=== PATIENT | female | born 1955 | race Caucasian/White ===

== ENCOUNTER 2016-08-16 09:52 | Outpatient (CLI) | payer OTHER ==
[2016-08-16 11:19] LABS: Anion Gap 12 mmol/L (10-20); Glucose 93 mg/dL (80-115)
[2016-08-16 11:40] LABS: BUN (Urea Nitrogen) 9 mg/dL (9.8-20.1); Calc. Creatinine Clearance 0 mL/min (70-130); Calcium 8.7 mg/dL (7.8-10.44); Carbon Dioxide 24 mmol/L (23-31); Chloride 111 mmol/L (98-107); Estimated GFR-MDRD 85; Potassium 2.5 mmol/L (3.5-5.1); Sodium 144 mmol/L (136-145)
== END 2016-08-16 09:53 | disposition home or self-care (01) ==
LOC: MADLAB 09:52
PROVIDERS: ATTEND Family Medicine
DX: R19.7 Diarrhea, unspecified (principal)
CPT/HCPCS: 36415; 80048

== ENCOUNTER 2016-08-19 11:31 | Outpatient (CLI) | payer OTHER ==
[2016-08-19 13:02] LABS: Potassium 2.7 mmol/L (3.5-5.1)
== END 2016-08-19 11:32 | disposition home or self-care (01) ==
LOC: MADLAB 11:31
PROVIDERS: ATTEND Family Medicine
DX: E87.6 Hypokalemia (principal)
CPT/HCPCS: 36415; 84132

== ENCOUNTER 2016-08-30 10:30 | Outpatient (CLI) | payer OTHER ==
[2016-09-06 18:20] LABS: Potassium 6.5 mmol/L (3.5-5.1)
== END 2016-08-30 10:31 | disposition home or self-care (01) ==
LOC: MADLAB 10:30
PROVIDERS: ATTEND Family Medicine
DX: E87.6 Hypokalemia (principal)
CPT/HCPCS: 36415; 84132

== ENCOUNTER 2016-09-01 10:34 | Outpatient (CLI) | payer OTHER ==
[2016-09-01 11:19] LABS: Potassium 6.3 mmol/L (3.5-5.1)
== END 2016-09-01 10:35 | disposition home or self-care (01) ==
LOC: MADLABBHPM 10:34
PROVIDERS: ATTEND Family Medicine
DX: E87.6 Hypokalemia (principal)
CPT/HCPCS: 36415; 84132

== ENCOUNTER 2016-09-06 09:43 | Outpatient (CLI) | payer OTHER ==
[2016-09-06 10:04] LABS: Potassium 4.6 mmol/L (3.5-5.1)
== END 2016-09-06 09:44 | disposition home or self-care (01) ==
LOC: MADLAB 09:43
PROVIDERS: ATTEND Family Medicine
DX: E87.6 Hypokalemia (principal)
CPT/HCPCS: 36415; 84132

== ENCOUNTER 2016-09-13 09:56 | Outpatient (CLI) | payer OTHER ==
[2016-09-13 11:06] LABS: Anion Gap 17 mmol/L (10-20); BUN (Urea Nitrogen) 7 mg/dL (9.8-20.1); Calc. Creatinine Clearance 0 mL/min (70-130); Carbon Dioxide 26 mmol/L (23-31); Chloride 103 mmol/L (98-107); Estimated GFR-MDRD 85; Glucose 94 mg/dL (80-115); Potassium 3.5 mmol/L (3.5-5.1); Sodium 142 mmol/L (136-145)
[2016-09-13 18:37] LABS: Creatinine, Urine 67.91 mg/dL (47-110); Potassium, Urine 15.9 mmol/L
[2016-09-16 14:25] LABS: Aldolase 3.7 U/L (3.3-10.3)
[2016-09-27 13:12] LABS: Renin Activity 0.212 ng/mL/hr (0.167-5.380)
== END 2016-09-13 09:57 | disposition home or self-care (01) ==
LOC: MADLAB 09:56
PROVIDERS: ATTEND Internal Medicine
DX: E87.6 Hypokalemia (principal)
CPT/HCPCS: 36415; 80048; 82085; 82570; 84133; 84244

== ENCOUNTER 2016-09-23 15:14 | Outpatient (CLI) | payer OTHER ==
[2016-09-23 15:33] LABS: Magnesium 1.8 mg/dL (1.6-2.6); Potassium 3.7 mmol/L (3.5-5.1)
== END 2016-09-23 15:15 | disposition home or self-care (01) ==
LOC: MADLAB 15:14
PROVIDERS: ATTEND Internal Medicine
DX: E87.6 Hypokalemia (principal)
CPT/HCPCS: 36415; 83735; 84132

== ENCOUNTER 2016-10-19 10:45 | Outpatient (CLI) | payer OTHER | END 2016-10-19 10:46 | disposition home or self-care (01) | LOC: MADLABBHPM 10:45 | PROVIDERS: ATTEND Internal Medicine | DX: E87.6 Hypokalemia (principal) | CPT/HCPCS: 36415; 84132 ==

== ENCOUNTER 2016-11-08 15:47 | Outpatient (CLI) | payer OTHER ==
[2016-11-08 16:24] LABS: Potassium 3.9 mmol/L (3.5-5.1)
== END 2016-11-08 15:48 | disposition home or self-care (01) ==
LOC: MADLAB 15:47
PROVIDERS: ATTEND Family Medicine
DX: E87.6 Hypokalemia (principal)
CPT/HCPCS: 36415; 84132

== ENCOUNTER 2016-11-09 11:39 | Outpatient (CLI) | payer OTHER ==
--- NOTE | 2016-11-10 09:00 | RAD ---
LEFT FOOT THREE VIEWS: Date: 11-09-16 Comparison: None History: Left foot pain for one month, no history of trauma. FINDINGS: The bones are demineralized. There is an old fracture involving the third metatarsal shaft. There is post-operative hardware associated with the distal tibia, not well characterized on this exam. No a cute displaced fracture or dislocation. IMPRESSION: Chronic changes as above. No displaced fracture or dislocation seen. POS: [facility]
== END 2016-11-09 11:40 | disposition home or self-care (01) ==
LOC: MADRAD 11:39
PROVIDERS: ATTEND Family Medicine
DX: M79.672 Pain in left foot (principal); E87.6 Hypokalemia

== ENCOUNTER 2016-11-26 11:31 | Outpatient (CLI) | payer OTHER ==
[2016-11-26 12:38] LABS: Potassium 4.1 mmol/L (3.5-5.1)
== END 2016-11-26 11:32 | disposition home or self-care (01) ==
LOC: MADLAB 11:31
PROVIDERS: ATTEND Family Medicine
DX: E87.6 Hypokalemia (principal)
CPT/HCPCS: 36415; 84132

== ENCOUNTER 2016-12-09 11:39 | Outpatient (CLI) | payer OTHER ==
[2016-12-09 12:08] LABS: Potassium 4.9 mmol/L (3.5-5.1)
== END 2016-12-09 11:40 | disposition home or self-care (01) ==
LOC: MADLABBHPM 11:39
PROVIDERS: ATTEND Family Medicine
DX: E87.6 Hypokalemia (principal)
CPT/HCPCS: 36415; 84132

== ENCOUNTER 2016-12-16 11:16 | Outpatient (CLI) | payer OTHER ==
[2016-12-16 11:59] LABS: Potassium 4.8 mmol/L (3.5-5.1)
== END 2016-12-16 11:17 | disposition home or self-care (01) ==
LOC: MADLABBHPM 11:16
PROVIDERS: ATTEND Family Medicine
DX: E87.6 Hypokalemia (principal)
CPT/HCPCS: 36415; 84132

== ENCOUNTER 2016-12-27 14:21 | Outpatient (CLI) | payer OTHER ==
[2016-12-27 15:02] LABS: Potassium 4.8 mmol/L (3.5-5.1)
== END 2016-12-27 14:22 | disposition home or self-care (01) ==
LOC: MADLABBHPM 14:21
PROVIDERS: ATTEND Family Medicine
DX: E87.6 Hypokalemia (principal)
CPT/HCPCS: 36415; 84132

== ENCOUNTER 2017-01-11 14:09 | Outpatient (CLI) | payer OTHER ==
[2017-01-11 14:33] LABS: Potassium 4.2 mmol/L (3.5-5.1)
== END 2017-01-11 14:10 | disposition home or self-care (01) ==
LOC: MADLABBHPM 14:09
PROVIDERS: ATTEND Family Medicine
DX: E87.6 Hypokalemia (principal)
CPT/HCPCS: 36415; 84132

== ENCOUNTER 2017-02-16 11:46 | Outpatient (CLI) | payer OTHER ==
[2017-02-16 12:57] LABS: Potassium 4.5 mmol/L (3.5-5.1)
== END 2017-02-16 11:47 | disposition home or self-care (01) ==
LOC: MADLABBHPM 11:46
PROVIDERS: ATTEND Family Medicine
DX: E87.6 Hypokalemia (principal)
CPT/HCPCS: 36415; 84132

== ENCOUNTER 2017-03-07 13:46 | Outpatient (CLI) | payer OTHER ==
[2017-03-07 14:21] LABS: Potassium 3.5 mmol/L (3.5-5.1)
== END 2017-03-07 13:47 | disposition home or self-care (01) ==
LOC: MADLABBHPM 13:46
PROVIDERS: ATTEND Family Medicine
DX: E87.6 Hypokalemia (principal)
CPT/HCPCS: 36415; 84132

== ENCOUNTER 2017-03-28 12:39 | Outpatient (CLI) | payer OTHER ==
[2017-03-28 12:59] LABS: Potassium 3.2 mmol/L (3.5-5.1)
== END 2017-03-28 12:40 | disposition home or self-care (01) ==
LOC: MADLABBHPM 12:39
PROVIDERS: ATTEND Family Medicine
DX: E87.6 Hypokalemia (principal)
CPT/HCPCS: 36415; 84132

== ENCOUNTER 2017-04-11 12:16 | Outpatient (CLI) | payer OTHER ==
[2017-04-11 13:12] LABS: Potassium 4.8 mmol/L (3.5-5.1)
== END 2017-04-11 12:17 | disposition home or self-care (01) ==
LOC: MADLABBHPM 12:16
PROVIDERS: ATTEND Family Medicine
DX: E87.6 Hypokalemia (principal)
CPT/HCPCS: 84132

== ENCOUNTER 2017-04-26 15:08 | Outpatient (CLI) | payer BC, OTHER ==
[2017-04-26 16:05] LABS: Potassium 4.7 mmol/L (3.5-5.1)
== END 2017-04-26 15:09 | disposition home or self-care (01) ==
LOC: MADLABBHPM 15:08
PROVIDERS: ATTEND Family Medicine
DX: E87.6 Hypokalemia (principal)
CPT/HCPCS: 36415; 84132

== ENCOUNTER 2017-07-11 09:10 | Outpatient (CLI) | payer BC | END 2017-07-11 09:11 | disposition home or self-care (01) | LOC: MADLABBHPM 09:10 | PROVIDERS: ATTEND Family Medicine | DX: E87.6 Hypokalemia (principal) | CPT/HCPCS: 36415; 84132 ==

== ENCOUNTER 2017-07-11 12:07 | Emergency (ER) | payer BC ==
[2017-07-11] MEDS ORDERED: Potassium Chloride 20 MEQ TAB ONE (12:45)
[2017-07-11] MEDS ORDERED: Magnesium Sulfate 2 GM/NS 0.9% 50 ML BAG ONE (12:46)
[2017-07-11] MEDS ORDERED: Potassium Chloride 20 MEQ/100 ML PREMIX BAG ONE (12:46)
[2017-07-11 12:59] LABS: #Basophils 0.1 thou/uL (0.0-0.2); #Eosinphils 0.1 thou/uL (0.0-0.7); #Monocytes 0.9 thou/uL (0.11-0.59); #Neutrophils 6.8 thou/uL (1.40-6.50); %Basophils 0.9 % (0.0-1.0); %Eosinophils 0.6 % (0.0-10.0); %Lymphocytes 33.5 % (21.0-51.0); %Monocytes 7.9 % (0.0-10.0); %Neutrophils 57.1 % (42.0-75.0); Hemoglobin 12.9 g/dL (12.0-16.0); Mean Corpuscular HGB CONC 32.3 g/dL (32.0-36.0); Mean Corpuscular Hemoglobin 30.5 pg (27.0-31.0); Mean Corpuscular Volume 94.2 fl (81.0-99.0); Mean Platelet Volume 6.4 fL (7.4-10.4); Platelet Count 544 thou/uL (130-400); RBC Distribution Width 17.1 % (11.5-14.5); Red Blood Cell (RBC) Count 4.24 mill/uL (4.20-5.40); White Blood Cell (WBC) Count 11.9 thou/uL (4.8-10.8)
[2017-07-11 13:12] LABS: ALT (SGPT) Less than 6 U/L (8-55); AST (SGOT) 12 U/L (5-34); Albumin 3.6 g/dL (3.4-4.8); Alkaline Phosphatase 64 U/L (40-150); Anion Gap 17 mmol/L (10-20); BUN (Urea Nitrogen) 24 mg/dL (9.8-20.1); Bilirubin, Total Less than 0.3 mg/dL (0.2-1.2); Calc. Creatinine Clearance 0 mL/min (70-130); Calcium 8.8 mg/dL (7.8-10.44); Carbon Dioxide 22 mmol/L (23-31); Chloride 105 mmol/L (98-107); Estimated GFR-MDRD 41; Globulin 3.2 g/dL (2.4-3.5); Glucose 103 mg/dL (80-115); Protein, Total 6.8 g/dL (6.0-8.3); Sodium 142 mmol/L (136-145)
[2017-07-11 13:14] LABS: CKMB 3.8 ng/mL (0-6.6); Troponin I 0.013 ng/mL (< 0.028)
[2017-07-11 13:18] LABS: Potassium 2.1 mmol/L (3.5-5.1)
== END 2017-07-11 15:35 | disposition short-term general hospital (02) ==
LOC: MADERS 12:07
DX: E87.6 Hypokalemia (principal); E78.5 Hyperlipidemia, unspecified; G40.909 Epilepsy, unspecified, not intractable, without status epilepticus; I10 Essential (primary) hypertension; D64.9 Anemia, unspecified; F32.9 Major depressive disorder, single episode, unspecified; K21.9 Gastro-esophageal reflux disease without esophagitis; J44.9 Chronic obstructive pulmonary disease, unspecified; F17.210 Nicotine dependence, cigarettes, uncomplicated; Z79.899 Other long term (current) drug therapy
CPT/HCPCS: 36415; 82553; 83735; 84132; 84484; 85025; 93005; 96365; 96366; 96367; J3475; J3480

== ENCOUNTER 2017-07-20 09:12 | Outpatient (CLI) | payer BC ==
[2017-07-20 10:55] LABS: ALT (SGPT) Less than 6 U/L (8-55); AST (SGOT) 10 U/L (5-34); Albumin 3.6 g/dL (3.4-4.8); Alkaline Phosphatase 53 U/L (40-150); Anion Gap 17 mmol/L (10-20); BUN (Urea Nitrogen) 6 mg/dL (9.8-20.1); Bilirubin, Total Less than 0.3 mg/dL (0.2-1.2); Calc. Creatinine Clearance 0 mL/min (70-130); Calcium 8.7 mg/dL (7.8-10.44); Carbon Dioxide 17 mmol/L (23-31); Chloride 112 mmol/L (98-107); Estimated GFR-MDRD Greater than 90; Globulin 2.9 g/dL (2.4-3.5); Glucose 116 mg/dL (80-115); Magnesium 1.5 mg/dL (1.6-2.6); Potassium 4.6 mmol/L (3.5-5.1); Protein, Total 6.5 g/dL (6.0-8.3); Sodium 141 mmol/L (136-145)
[2017-07-20 11:04] LABS: #Basophils 0.1 thou/uL (0.0-0.2); #Lymphocytes 1.3 thou/uL (1.20-3.40); #Monocytes 0.2 thou/uL (0.11-0.59); %Basophils 0.8 % (0.0-1.0); %Eosinophils 0.3 % (0.0-10.0); %Lymphocytes 13.8 % (21.0-51.0); %Monocytes 1.7 % (0.0-10.0); %Neutrophils 83.4 % (42.0-75.0); Hemoglobin 10.7 g/dL (12.0-16.0); Mean Corpuscular HGB CONC 31.8 g/dL (32.0-36.0); Mean Corpuscular Hemoglobin 30.9 pg (27.0-31.0); Mean Corpuscular Volume 97.1 fl (81.0-99.0); Mean Platelet Volume 5.4 fL (7.4-10.4); Platelet Count 567 thou/uL (130-400); RBC Distribution Width 17.5 % (11.5-14.5); Red Blood Cell (RBC) Count 3.46 mill/uL (4.20-5.40); White Blood Cell (WBC) Count 9.6 thou/uL (4.8-10.8)
[2017-07-20 17:16] LABS: Valproic Acid (Depakene) 43.6 ug/mL (50.0-100.0)
== END 2017-07-20 09:13 | disposition home or self-care (01) ==
LOC: MADLABBHPM 09:12
PROVIDERS: ATTEND Family Medicine
DX: E83.40 Disorders of magnesium metabolism, unspecified (principal); E87.6 Hypokalemia; I10 Essential (primary) hypertension; R19.7 Diarrhea, unspecified
CPT/HCPCS: 36415; 80053; 80164; 83735; 84443; 85025

== ENCOUNTER 2017-07-28 13:56 | Outpatient (CLI) | payer BC ==
[2017-07-28 14:58] LABS: Potassium 4.8 mmol/L (3.5-5.1)
== END 2017-07-28 13:57 | disposition home or self-care (01) ==
LOC: MADLABBHPM 13:56
PROVIDERS: ATTEND Family Medicine
DX: E87.6 Hypokalemia (principal); I10 Essential (primary) hypertension
CPT/HCPCS: 36415

== ENCOUNTER 2017-08-04 09:20 | Outpatient (CLI) | payer BC ==
[2017-08-04 09:49] LABS: #Basophils 0.1 thou/uL (0.0-0.2); #Monocytes 0.3 thou/uL (0.11-0.59); #Neutrophils 7.8 thou/uL (1.40-6.50); %Basophils 0.8 % (0.0-1.0); %Eosinophils 0.2 % (0.0-10.0); %Lymphocytes 19.5 % (21.0-51.0); %Neutrophils 76.6 % (42.0-75.0); Hemoglobin 11.4 g/dL (12.0-16.0); Mean Corpuscular HGB CONC 31.2 g/dL (32.0-36.0); Mean Corpuscular Hemoglobin 30.7 pg (27.0-31.0); Mean Corpuscular Volume 98.3 fl (81.0-99.0); Mean Platelet Volume 5.5 fL (7.4-10.4); Platelet Count 472 thou/uL (130-400); RBC Distribution Width 16.4 % (11.5-14.5); Red Blood Cell (RBC) Count 3.72 mill/uL (4.20-5.40); White Blood Cell (WBC) Count 10.2 thou/uL (4.8-10.8)
[2017-08-04 10:01] LABS: Anion Gap 18 mmol/L (10-20); BUN (Urea Nitrogen) 15 mg/dL (9.8-20.1); Calc. Creatinine Clearance 0 mL/min (70-130); Calcium 9.4 mg/dL (7.8-10.44); Carbon Dioxide 19 mmol/L (23-31); Chloride 111 mmol/L (98-107); Estimated GFR-MDRD 75; Glucose 133 mg/dL (80-115); Potassium 5.7 mmol/L (3.5-5.1); Sodium 142 mmol/L (136-145)
== END 2017-08-04 09:21 | disposition home or self-care (01) ==
LOC: MADLABBHPM 09:20
PROVIDERS: ATTEND Family Medicine
DX: E87.6 Hypokalemia (principal); I10 Essential (primary) hypertension
CPT/HCPCS: 36415; 80048; 85025

== ENCOUNTER 2017-08-08 13:16 | Outpatient (CLI) | payer BC ==
[2017-08-08 14:04] LABS: Potassium 3.4 mmol/L (3.5-5.1)
== END 2017-08-08 13:17 | disposition home or self-care (01) ==
LOC: MADLABBHPM 13:16
PROVIDERS: ATTEND Family Medicine
DX: E87.6 Hypokalemia (principal); I10 Essential (primary) hypertension
CPT/HCPCS: 36415; 84132

== ENCOUNTER 2017-08-12 16:16 | Outpatient (CLI) | payer BC ==
[2017-08-12 16:46] LABS: Potassium 2.6 mmol/L (3.5-5.1)
== END 2017-08-12 16:17 | disposition home or self-care (01) ==
LOC: MADLABBHPM 16:16
PROVIDERS: ATTEND Family Medicine
DX: E87.6 Hypokalemia (principal)
CPT/HCPCS: 36415; 84132

== ENCOUNTER 2017-08-12 17:07 | Emergency (ER) | payer BC ==
[~2017-08-12 17:07] MED LIST: Sodium Chloride 0.9% 1,000 ML BAG ONE
[2017-08-12 18:15] LABS: #Basophils 0.1 thou/uL (0.0-0.2); #Eosinphils 0.1 thou/uL (0.0-0.7); #Lymphocytes 2.6 thou/uL (1.20-3.40); #Monocytes 0.6 thou/uL (0.11-0.59); %Basophils 0.9 % (0.0-1.0); %Eosinophils 1.6 % (0.0-10.0); %Lymphocytes 30.7 % (21.0-51.0); %Neutrophils 59.8 % (42.0-75.0); Hemoglobin 10.2 g/dL (12.0-16.0); Mean Corpuscular HGB CONC 31.2 g/dL (32.0-36.0); Mean Corpuscular Hemoglobin 30.6 pg (27.0-31.0); Mean Corpuscular Volume 98.1 fl (81.0-99.0); Mean Platelet Volume 5.6 fL (7.4-10.4); Platelet Count 349 thou/uL (130-400); RBC Distribution Width 16.3 % (11.5-14.5); Red Blood Cell (RBC) Count 3.33 mill/uL (4.20-5.40); White Blood Cell (WBC) Count 8.3 thou/uL (4.8-10.8)
[2017-08-12] MEDS ORDERED: Furosemide 40 MG/4 ML VIAL ONE (18:21)
[2017-08-12] MEDS ORDERED: Potassium Chloride 20 MEQ/100 ML PREMIX BAG ONE (18:21)
[2017-08-12] MEDS ORDERED: Levofloxacin 500 mg/D5W 100 ml Premix Bag ONE (18:21)
[2017-08-12 18:30] LABS: ALT (SGPT) Less than 7 U/L (8-55); AST (SGOT) 5 U/L (5-34); Albumin 3.4 g/dL (3.4-4.8); Alkaline Phosphatase 36 U/L (40-150); Anion Gap 13 mmol/L (10-20); BUN (Urea Nitrogen) 11 mg/dL (9.8-20.1); Bilirubin, Total Less than 0.2 mg/dL (0.2-1.2); Calc. Creatinine Clearance 0 mL/min (70-130); Calcium 8.1 mg/dL (7.8-10.44); Carbon Dioxide 21 mmol/L (23-31); Chloride 114 mmol/L (98-107); Estimated GFR-MDRD 84; Globulin 2.3 g/dL (2.4-3.5); Glucose 94 mg/dL (80-115); Magnesium 1.8 mg/dL (1.6-2.6); Protein, Total 5.7 g/dL (6.0-8.3); Sodium 146 mmol/L (136-145)
[2017-08-12 18:37] LABS: Potassium 2.3 mmol/L (3.5-5.1)
== END 2017-08-12 20:25 | disposition short-term general hospital (02) ==
LOC: MADERS 17:07
DX: E87.6 Hypokalemia (principal); K52.9 Noninfective gastroenteritis and colitis, unspecified; E78.5 Hyperlipidemia, unspecified; G40.209 Localization-related (focal) (partial) symptomatic epilepsy and epileptic syndromes with complex partial seizures, not intractable, without status epilepticus; G43.909 Migraine, unspecified, not intractable, without status migrainosus; I10 Essential (primary) hypertension; D64.9 Anemia, unspecified; F32.9 Major depressive disorder, single episode, unspecified; G47.00 Insomnia, unspecified; F17.210 Nicotine dependence, cigarettes, uncomplicated; J44.9 Chronic obstructive pulmonary disease, unspecified; Z79.899 Other long term (current) drug therapy
CPT/HCPCS: 36415; 83735; 84132; 85025; 93005; 96365; 96367; 96375; J1940; J1956; J3480; J7050

== ENCOUNTER 2017-08-16 14:20 | Outpatient (CLI) | payer BC ==
[2017-08-16 14:54] LABS: Anion Gap 16 mmol/L (10-20); BUN (Urea Nitrogen) 7 mg/dL (9.8-20.1); Calc. Creatinine Clearance 0 mL/min (70-130); Carbon Dioxide 16 mmol/L (23-31); Chloride 115 mmol/L (98-107); Estimated GFR-MDRD 90; Glucose 93 mg/dL (80-115); Potassium 3.9 mmol/L (3.5-5.1); Sodium 143 mmol/L (136-145)
== END 2017-08-16 14:21 | disposition home or self-care (01) ==
LOC: MADLABBHPM 14:20
PROVIDERS: ATTEND Family Medicine
DX: E87.6 Hypokalemia (principal)
CPT/HCPCS: 36415; 80048

== ENCOUNTER 2017-08-22 13:02 | Outpatient (CLI) | payer BC ==
[2017-08-22 13:32] LABS: Potassium 4.9 mmol/L (3.5-5.1)
== END 2017-08-22 13:03 | disposition home or self-care (01) ==
LOC: MADLABBHPM 13:02
PROVIDERS: ATTEND Family Medicine
DX: E87.6 Hypokalemia (principal)
CPT/HCPCS: 36415

== ENCOUNTER 2017-08-29 15:22 | Outpatient (CLI) | payer BC ==
[2017-08-29 15:56] LABS: Anion Gap 19 mmol/L (10-20); BUN (Urea Nitrogen) 11 mg/dL (9.8-20.1); Calc. Creatinine Clearance 0 mL/min (70-130); Calcium 9.3 mg/dL (7.8-10.44); Carbon Dioxide 19 mmol/L (23-31); Chloride 103 mmol/L (98-107); Estimated GFR-MDRD 74; Glucose 150 mg/dL (80-115); Potassium 3.1 mmol/L (3.5-5.1); Sodium 138 mmol/L (136-145)
== END 2017-08-29 15:23 | disposition home or self-care (01) ==
LOC: MADLAB 15:22
PROVIDERS: ATTEND Family Medicine
DX: I10 Essential (primary) hypertension (principal)
CPT/HCPCS: 36415

== ENCOUNTER 2017-09-01 21:39 | Emergency (ER) | payer BC ==
[2017-09-01] MEDS ORDERED: Ketorolac Tromethamine 30 MG/ML VIAL ONE (22:11)
[2017-09-01] MEDS ORDERED: Diphenoxylate HCl/Atropine Tablet ONE (22:11)
[2017-09-01] MEDS ORDERED: Ondansetron HCl/PF 4 MG/2 ML Vial ONE (22:11)
[2017-09-01 22:31] LABS: INR-International Normal Ratio 1.1; PTT 28.1 SEC (22.9-36.1); Prothrombin Time 14.2 SEC (12.0-14.7)
[2017-09-01 22:38] LABS: Hemoglobin 12.5 g/dL (12.0-16.0); Mean Corpuscular HGB CONC 30.3 g/dL (32.0-36.0); Mean Corpuscular Hemoglobin 30.2 pg (27.0-31.0); Mean Corpuscular Volume 99.7 fl (81.0-99.0); Platelet Count 615 thou/uL (130-400); RBC Distribution Width 16.5 % (11.5-14.5); Red Blood Cell (RBC) Count 4.15 mill/uL (4.20-5.40)
[2017-09-01 22:39] LABS: Anisocytosis SLIGHT = 6-15 cells (100X) (0-5/hpf); Hypochromia SLIGHT = 6-15 cells (100X) (0-5/hpf); Lymphocytes 10 % (21-51); MDiff Complete? YES; Monocytes 7 % (0-10); Neutrophil 83 % (42-75); PLT Morphology Comment Appears Increased; Poikilocytosis SLIGHT = 6-15 cells (100X) (0-5/hpf); RBC Morphology Abnormal
[2017-09-01 22:43] LABS: CKMB 2.4 ng/mL (0-6.6); Troponin I 0.015 ng/mL (< 0.028)
[2017-09-01 22:44] LABS: ALT (SGPT) Less than 7 U/L (8-55); AST (SGOT) 8 U/L (5-34); Albumin 3.8 g/dL (3.4-4.8); Alkaline Phosphatase 98 U/L (40-150); BUN (Urea Nitrogen) 33 mg/dL (9.8-20.1); Bilirubin, Total Less than 0.2 mg/dL (0.2-1.2); CK (CPK) 46 U/L (29-168); Calc. Creatinine Clearance 0 mL/min (70-130); Calcium 9.1 mg/dL (7.8-10.44); Chloride 105 mmol/L (98-107); Estimated GFR-MDRD 31; Globulin 3.8 g/dL (2.4-3.5); Glucose 130 mg/dL (80-115); Magnesium 1.9 mg/dL (1.6-2.6); Potassium 3.4 mmol/L (3.5-5.1); Protein, Total 7.6 g/dL (6.0-8.3); Sodium 135 mmol/L (136-145)
[2017-09-01 22:49] LABS: Carbon Dioxide Less than 8 mmol/L (23-31)
--- NOTE | 2017-09-01 22:53 | RAD ---
PORTABLE AP CHEST X-RAY 09/01/17 HISTORY: Chest pain. COMPARISON: 08/23/16 FINDINGS: The cardiac silhouette and pulmonary vasculature are within normal limits. There is a nodular parench ymal density seen at the left lung base which was not present on the prior study. This could represen t focal area of pneumonitis, but followup to resolution is recommended. The lungs are otherwise clear . Vascular calcifications are seen in the thoracic aorta. No other interval change. IMPRESSION: Nodular parenchymal density at the left lung base which could potentially represent focal area of pne umonitis. Followup to complete resolution is recommended. POS: [facility]
[2017-09-01] MEDS ORDERED: Lorazepam 2 MG/ML VIAL ONE (23:49)
[2017-09-02] MEDS ORDERED: Promethazine HCl 25 MG/ML VIAL ONE (00:13)
[2017-09-02] MEDS ORDERED: Phenergan/Codeine 10-6.25mg/5ml UDCUP ONE (01:00)
[2017-09-02] MEDS ORDERED: cefTRIAXone\\ROCEPHIN 1 GM VIAL ONE (02:15)
[2017-09-02 02:26] LABS: Lactic Acid 0.8 mmol/L (0.5-2.2)
[2017-09-02] MEDS ORDERED: Acetaminophen 500 MG TAB ONE (02:55)
== END 2017-09-02 03:30 | disposition short-term general hospital (02) ==
LOC: MADERS 21:39
DX: J18.9 Pneumonia, unspecified organism (principal); I12.9 Hypertensive chronic kidney disease with stage 1 through stage 4 chronic kidney disease, or unspecified chronic kidney disease; N18.2 Chronic kidney disease, stage 2 (mild); K90.0 Celiac disease; E87.8 Other disorders of electrolyte and fluid balance, not elsewhere classified; E86.0 Dehydration; F32.9 Major depressive disorder, single episode, unspecified; E78.5 Hyperlipidemia, unspecified; G43.909 Migraine, unspecified, not intractable, without status migrainosus; M81.0 Age-related osteoporosis without current pathological fracture; K21.9 Gastro-esophageal reflux disease without esophagitis; G50.0 Trigeminal neuralgia; G47.00 Insomnia, unspecified; J44.9 Chronic obstructive pulmonary disease, unspecified; F17.210 Nicotine dependence, cigarettes, uncomplicated; Z79.51 Long term (current) use of inhaled steroids; Z79.52 Long term (current) use of systemic steroids; Z79.899 Other long term (current) drug therapy
CPT/HCPCS: 36415; 71045; 80053; 82550; 82553; 83605; 83735; 83880; 84484; 85025; 85610; 85730; 87040; 93005; 94760; 96361; 96365; 96375; J0696; J1885; J1956; J2060; J2405; J2550; J7050

== ENCOUNTER 2017-09-07 15:02 | Outpatient (CLI) | payer BC ==
[2017-09-07 15:32] LABS: Potassium 4.5 mmol/L (3.5-5.1)
== END 2017-09-07 15:03 | disposition home or self-care (01) ==
LOC: MADLABBHPM 15:02
PROVIDERS: ATTEND Family Medicine
DX: E87.6 Hypokalemia (principal); I10 Essential (primary) hypertension
CPT/HCPCS: 36415; 84132

== ENCOUNTER 2017-09-12 11:47 | Outpatient (CLI) | payer BC ==
[2017-09-12 12:12] LABS: Potassium 4.6 mmol/L (3.5-5.1)
== END 2017-09-12 11:48 | disposition home or self-care (01) ==
LOC: MADLABBHPM 11:47
PROVIDERS: ATTEND Family Medicine
DX: E87.6 Hypokalemia (principal); I10 Essential (primary) hypertension
CPT/HCPCS: 36415; 84132

== ENCOUNTER 2017-09-19 17:24 | Outpatient (CLI) | payer BC ==
[2017-09-20 06:12] LABS: Potassium 4.1 mmol/L (3.5-5.1)
== END 2017-09-19 17:25 | disposition home or self-care (01) ==
LOC: MADLAB 17:24
PROVIDERS: ATTEND Family Medicine
DX: E87.6 Hypokalemia (principal)
CPT/HCPCS: 84132

== ENCOUNTER 2017-09-23 09:14 | Outpatient (CLI) | payer BC ==
[2017-09-23 09:33] LABS: Potassium 3.6 mmol/L (3.5-5.1)
== END 2017-09-23 09:15 | disposition home or self-care (01) ==
LOC: MADLABBHPM 09:14
PROVIDERS: ATTEND Family Medicine
DX: E87.6 Hypokalemia (principal)
CPT/HCPCS: 36415; 84132

== ENCOUNTER 2017-09-26 10:06 | Outpatient (CLI) | payer BC ==
[2017-09-26 10:28] LABS: Potassium 4.2 mmol/L (3.5-5.1)
== END 2017-09-26 10:07 | disposition home or self-care (01) ==
LOC: MADLABBHPM 10:06
PROVIDERS: ATTEND Family Medicine
DX: E87.6 Hypokalemia (principal); I10 Essential (primary) hypertension
CPT/HCPCS: 36415; 84132

== ENCOUNTER 2017-10-03 10:34 | Outpatient (CLI) | payer BC ==
[2017-10-03 10:53] LABS: Potassium 3.7 mmol/L (3.5-5.1)
== END 2017-10-03 10:35 | disposition home or self-care (01) ==
LOC: MADLABBHPM 10:34
PROVIDERS: ATTEND Family Medicine
DX: E87.6 Hypokalemia (principal)
CPT/HCPCS: 36415; 84132

== ENCOUNTER 2017-10-10 11:52 | Outpatient (CLI) | payer BC ==
[2017-10-10 12:14] LABS: Potassium 3.9 mmol/L (3.5-5.1)
== END 2017-10-10 11:53 | disposition home or self-care (01) ==
LOC: MADLAB 11:52
PROVIDERS: ATTEND Family Medicine
DX: E87.6 Hypokalemia (principal); I10 Essential (primary) hypertension
CPT/HCPCS: 36415; 84132

== ENCOUNTER 2017-10-17 09:44 | Outpatient (CLI) | payer BC ==
[2017-10-17 10:27] LABS: Potassium 3.9 mmol/L (3.5-5.1)
== END 2017-10-17 09:45 | disposition home or self-care (01) ==
LOC: MADLABBHPM 09:44
PROVIDERS: ATTEND Family Medicine
DX: E87.6 Hypokalemia (principal); I10 Essential (primary) hypertension
CPT/HCPCS: 36415; 84132

== ENCOUNTER 2017-10-24 10:22 | Outpatient (CLI) | payer BC ==
[2017-10-24 11:08] LABS: Potassium 3.4 mmol/L (3.5-5.1)
== END 2017-10-24 10:23 | disposition home or self-care (01) ==
LOC: MADLABBHPM 10:22
PROVIDERS: ATTEND Family Medicine
DX: E87.6 Hypokalemia (principal); I10 Essential (primary) hypertension
CPT/HCPCS: 84132

== ENCOUNTER 2017-10-31 15:04 | Outpatient (CLI) | payer BC ==
[2017-10-31 15:49] LABS: Anion Gap 13 mmol/L (10-20); BUN (Urea Nitrogen) 8 mg/dL (9.8-20.1); Calc. Creatinine Clearance 0 mL/min (70-130); Calcium 8.4 mg/dL (7.8-10.44); Carbon Dioxide 20 mmol/L (23-31); Chloride 116 mmol/L (98-107); Estimated GFR-MDRD Greater than 90; Glucose 81 mg/dL (80-115); Potassium 4.1 mmol/L (3.5-5.1); Sodium 145 mmol/L (136-145)
[2017-10-31 15:55] LABS: Hemoglobin 9.7 g/dL (12.0-16.0); Mean Corpuscular HGB CONC 30.1 g/dL (32.0-36.0); Mean Corpuscular Hemoglobin 28.6 pg (27.0-31.0); Mean Corpuscular Volume 94.9 fL (81.0-99.0); Platelet Count 499 thou/uL (130-400); RBC Distribution Width 17.5 % (11.5-14.5); Red Blood Cell (RBC) Count 3.39 mill/uL (4.20-5.40); White Blood Cell (WBC) Count 6.9 thou/uL (4.8-10.8)
[2017-10-31 15:56] LABS: Band 1 % (5-11); Eosinophils 2 % (0-10); Lymphocytes 49 % (21-51); MDiff Complete? YES; Manual Diff?? YES; Mean Platelet Volume 5.3 fL (7.4-10.4); Monocytes 5 % (0-10); Neutrophil 35 % (42-75); Reactive Lymphocytes 8 % (0-10)
[2017-10-31 15:57] LABS: PLT Morphology Comment Appears Increased
== END 2017-10-31 15:05 | disposition home or self-care (01) ==
LOC: MADLABBHPM 15:04
PROVIDERS: ATTEND Family Medicine
DX: E87.6 Hypokalemia (principal); I10 Essential (primary) hypertension
CPT/HCPCS: 36415; 80048; 85025

== ENCOUNTER 2017-11-07 10:13 | Outpatient (CLI) | payer BC ==
[2017-11-07 10:34] LABS: Potassium 4.7 mmol/L (3.5-5.1)
== END 2017-11-07 10:14 | disposition home or self-care (01) ==
LOC: MADLABBHPM 10:13
PROVIDERS: ATTEND Family Medicine
DX: E87.6 Hypokalemia (principal); I10 Essential (primary) hypertension
CPT/HCPCS: 36415; 84132

== ENCOUNTER 2017-11-14 10:29 | Outpatient (CLI) | payer BC ==
[2017-11-14 10:50] LABS: Potassium 4.3 mmol/L (3.5-5.1)
== END 2017-11-14 10:30 | disposition home or self-care (01) ==
LOC: MADLABBHPM 10:29
PROVIDERS: ATTEND Family Medicine
DX: E87.6 Hypokalemia (principal); I10 Essential (primary) hypertension
CPT/HCPCS: 36415; 84132

== ENCOUNTER 2017-11-17 14:13 | Outpatient (CLI) | payer BC ==
[2017-11-17 14:55] LABS: Potassium 4.4 mmol/L (3.5-5.1)
== END 2017-11-17 14:14 | disposition home or self-care (01) ==
LOC: MADLABBHPM 14:13
PROVIDERS: ATTEND Family Medicine
DX: I10 Essential (primary) hypertension (principal); E87.6 Hypokalemia
CPT/HCPCS: 36415; 84132

== ENCOUNTER 2017-11-21 10:04 | Outpatient (CLI) | payer BC ==
[2017-11-21 10:25] LABS: Potassium 4.5 mmol/L (3.5-5.1)
== END 2017-11-21 10:05 | disposition home or self-care (01) ==
LOC: MADLABBHPM 10:04
PROVIDERS: ATTEND Family Medicine
DX: I10 Essential (primary) hypertension (principal); E87.6 Hypokalemia
CPT/HCPCS: 36415; 84132